=== PATIENT | male | born 1985 | race American Indian/Alaskan Native ===

== ENCOUNTER 2016-12-10 09:26 | Emergency (ER) | payer SELFPAY ==
[2016-12-10 10:08] LABS: Basophils % (Auto) 0.6 % (0.0-1.8); Eosinophils % (Auto) 0.7 % (0.0-4.3); Hematocrit 41.1 % (35.5-45.6); Hemoglobin 13.4 gm/dl (11.8-15.2); Mean Corpuscular HGB Conc 33 % (32-34); Mean Corpuscular Hemoglobin 30 pg (28-32); Mean Corpuscular Volume 93 fl (84-94); Platelet Count 289 K/mm3 (140-440); Red Blood Count 4.42 M/mm3 (3.65-5.03); Red Cell Distribution Width 13.3 % (13.2-15.2); White Blood Count 11.3 K/mm3 (4.5-11.0)
[2016-12-10 10:38] LABS: Bilirubin,Urine NEG (Negative); Blood,Urine NEG (Negative); Ketones,Urine NEG (Negative); Leukocyte Esterase,Urine NEG (Negative); Mucus,Urine FEW /HPF; Nitrite,Urine NEG (Negative)
[2016-12-10] MEDS ORDERED: NORCO 5/325 PO ONE (10:48)
[2016-12-10] MEDS ORDERED: MOTRIN PO ONE (10:49)
[2016-12-10] MEDS ORDERED: BICILLIN L-A IM ONE (10:49)
[2016-12-10 11:00] LABS: Anion Gap 16 mmol/L; BUN/Creatinine Ratio 31.66; Blood Urea Nitrogen 19 mg/dL (9-20); Carbon Dioxide 26 mmol/L (22-30); Chloride 101.5 mmol/L (98-107); Glucose 104 mg/dL (75-100); Potassium 4.6 mmol/L (3.6-5.0); Sodium 139 mmol/L (137-145)
[2016-12-10 12:44] VITALS: BP 153/93
--- NOTE | 2016-12-10 12:53 | Emergency Department Report ---
Entered by SACHA BERKOWITZ, acting as scribe for MIMI DYE NP. ED Fever HPI - General Chief Complaint: Sore Throat Stated Complaint: FEVER 103.5 Time Seen by Provider: 12/10/16 10:44 Source: patient Exam Limitations: no limitations - History of Present Illness Initial Comments: Pt is a 31 y.o. male who presents to [facility] for evaluation of two day hx of persistent fever (Tmax of 103 F) with associated constant sore throat that is aggravated with swallowing, diaphoresis, generalized myalgias, and generalized weakness. He notes that he last took medication at 2300 last night, at which time he took ibuprofen and Afrin. He does not report cough. Patient reports positive ill contact with daughter. Timing/Duration: constant Fever Severity/Quality: greater than 102 F Fever Therapy SET UP [employer]ACH[employer]ES: Ibuprofen, other (Afrin) Associated Symptoms: diaphoresis, muscle aches, sore throat, weakness. denies: cough Timing/Duration: other (2 days ago ) Fever Severity/Quality: greater than 102 F Associated Symptoms: diaphoresis, muscle aches, sore throat, weakness. denies: cough, nausea/vomiting, rash ED Review of Systems ROS: Comment: All other systems reviewed and negative Constitutional: fever, weakness ENT: throat pain Respiratory: denies: cough Gastrointestinal: denies: abdominal pain, nausea, vomiting Musculoskeletal: myalgia ED Past Medical Hx - Past Medical History Previous Medical History?: No - Surgical History Past Surgical History?: Yes Additional Surgical History: right testicular surgery - Social History Smoking Status: Current Every Day Smoker Substance Use Type: Alcohol, Marijuana, Non Opiate Pain - Medications Home Medications: Home Medications Medication Instructions Recorded Confirmed Last Taken Type Ibuprofen [Motrin] 600 mg PO Q8H PRN #15 tablet 12/10/16 Unknown Rx ED Physical Exam - General Limitations: No Limitations General appearance: alert, in no apparent distress - Head Head exam: Present: atraumatic, normocephalic, normal inspection - Eye Eye exam: Present: normal appearance, PERRL, EOMI. Absent: conjunctival injection - ENT ENT exam: Present: mucous membranes moist, TM's normal bilaterally, normal external ear exam - Expanded ENT Exam Expanded Mouth exam: Present: normal external inspection. Absent: drooling, trismus Throat exam: Positive: tonsillar erythema, tonsillomegaly, tonsillar exudate. Negative: R peritonsillar mass, L peritonsillar mass - Neck Neck exam: Present: normal inspection, tenderness, full ROM, lymphadenopathy ( lymph nodes tender). Absent: meningismus - Respiratory Respiratory exam: Present: normal lung sounds bilaterally. Absent: respiratory distress - Cardiovascular Cardiovascular Exam: Present: normal rhythm, tachycardia. Absent: systolic murmur, diastolic murmur, rubs, gallop - GI/Abdominal GI/Abdominal exam: Present: soft, normal bowel sounds. Absent: tenderness - Rectal Rectal exam: Present: deferred - Extremities Exam Extremities exam: Present: normal inspection, full ROM - Back Exam Back exam: Present: normal inspection - Neurological Exam Neurological exam: Present: alert, oriented X3, normal gait - Psychiatric Psychiatric exam: Present: normal affect, normal mood - Skin Skin exam: Present: warm, intact, normal color, diaphoretic. Absent: rash ED Course Vital Signs 12/10/16 12/10/16 12/10/16 09:29 11:11 12:43 Temperature 102.7 F H 101.9 F H 98.7 F Pulse Rate 93 H 66 Respiratory 20 18 Rate Blood Pressure 140/91 Blood Pressure 153/93 [Right] O2 Sat by Pulse 99 99 Oximetry - Reevaluation(s) Reevaluation #1: 12/10/16 12:46 PT states he is feeling better. Afebrile after Motrin and [place]. PT aware of dx and plan of care. PT has no questions at this time. - Pulse Oximetry Interpretation Digit-Finger Initial Pulse Oximetry Readin Actions Taken: none ED Medical Decision Making - Lab Data Result diagrams: 12/10/16 09:53 12/10/16 09:53 Labs 12/10/16 12/10/16 12/10/16 09:53 09:53 10:09 WBC 11.3 H RBC 4.42 Hgb 13.4 Hct 41.1 MCV 93 MCH 30 MCHC 33 RDW 13.3 Plt Count 289 Lymph % (Auto) 23.8 Garza % (Auto) 6.8 Eos % (Auto) 0.7 Baso % (Auto) 0.6 Lymph # 2.7 Garza # 0.8 Eos # 0.1 Baso # 0.1 Seg Neutrophils % 68.1 Seg Neutrophils # 7.7 Sodium 139 Potassium 4.6 Chloride 101.5 Carbon Dioxide 26 Anion Gap 16 BUN 19 Creatinine 0.6 L Estimated GFR > 60 BUN/Creatinine Ratio 31.66 Glucose 104 H Calcium 9.0 Urine Color Yellow Urine Turbidity Clear Urine pH 6.0 Ur Specific Clint 1.026 Urine Protein 30 mg/dl Urine Glucose (UA) Neg Urine Ketones Neg Urine Blood Neg Urine Nitrite Neg Urine Bilirubin Neg Urine Urobilinogen 2.0 Ur Leukocyte Esterase Neg Urine WBC (Auto) 1.0 Urine RBC (Auto) 2.0 U Epithel Cells (Auto) < 1.0 Urine Mucus Few - Differential Diagnosis strep pharyngitis, uri Critical Care Time: No ED Disposition Clinical Impression: Strep pharyngitis Fever Qualifiers: Fever type: unspecified Qualified Code(s): R50.9 - Fever, unspecified Disposition: TO HOME OR SELFCARE Is pt being admited?: No Does the pt Need Aspirin: No Condition: Stable Instructions: Strep Throat (ED), Fever in Adults (ED) Additional Instructions: Rest Increase Fluids Follow up with PCP in the next 3-5 days Have your bp rechecked on follow up Return to the ED if worsening or concerns. Prescriptions: Ibuprofen [Motrin] 600 mg PO Q8H PRN #15 tablet PRN Reason: Pain Referrals: PRIMARY CARE,MD [Primary Care Provider] - 3-5 Days ANASTASIIA ADEN MD [Staff Physician] - 3-5 Days [facility] [Outside] - 3-5 Days [facility] [Outside] - 3-5 Days Time of Disposition: 12:49 This documentation as recorded by the SHO fiore KELLY,accurately reflects the service I personally performed and the decisions made by ,MIMI DYE , TARSHA.
== END 2016-12-10 12:55 | disposition home or self-care (01) ==
LOC: ED 09:26
DX: J02.0 Streptococcal pharyngitis (principal); F17.210 Nicotine dependence, cigarettes, uncomplicated; F12.10 Cannabis abuse, uncomplicated; Z98.890 Other specified postprocedural states
CPT/HCPCS: 36415; 80048; 81001; 85025; 87430; 96372; 99283; J0561

== ENCOUNTER 2017-06-15 09:10 | Emergency (ER) | payer OTHER ==
[2017-06-15 10:27] LABS: BUN/Creatinine Ratio 25; Blood Urea Nitrogen 20 mg/dL (9-20); Calcium 9.3 mg/dL (8.4-10.2); Hemolysis Index 11
--- NOTE | 2017-06-15 10:31 | XRay Report ---
ROUTINE CHEST, TWO VIEWS: HISTORY: Shortness of breath. The trachea, heart, mediastinal contour, lung lemus and bony thorax are unremarkable. IMPRESSION: Unremarkable chest x-ray.
[2017-06-15 10:43] LABS: Basophils % (Auto) 0.7 % (0.0-1.8); Eosinophils # (Auto) 0.3 K/mm3 (0.0-0.4); Eosinophils % (Auto) 4.5 % (0.0-4.3); Hematocrit 41.3 % (35.5-45.6); Lymphocytes # (Auto) 2.5 K/mm3 (1.2-5.4); Lymphocytes % (Auto) 36.7 % (13.4-35.0); Mean Corpuscular HGB Conc 32 % (32-34); Mean Corpuscular Volume 78 fl (84-94); Monocytes # (Auto) 0.5 K/mm3 (0.0-0.8); Monocytes % (Auto) 7.8 % (0.0-7.3); Platelet Count 240 K/mm3 (140-440); Red Blood Count 5.28 M/mm3 (3.65-5.03); Red Cell Distribution Width 14.6 % (13.2-15.2)
[2017-06-15 11:14] LABS: Mean Corpuscular Hemoglobin 25 pg (28-32)
[2017-06-15 17:13] VITALS: BP 126/85
== END 2017-06-15 22:00 | disposition left against medical advice (07) ==
LOC: ED 09:10
DX: R07.9 Chest pain, unspecified (principal); Z53.21 Procedure and treatment not carried out due to patient leaving prior to being seen by health care provider
CPT/HCPCS: 36415; 71020; 80048; 85025; 93005; 93010

== ENCOUNTER 2020-01-20 14:07 | Emergency (ER) | payer SELFPAY ==
--- NOTE | 2020-01-20 15:03 | XRay Report ---
CHEST 2 VIEWS INDICATION: sob,cough and rales. COMPARISON: None FINDINGS: Support devices: None. Heart: Within normal limits. Lungs: No acute air space or interstitial disease. Pleura: No significant pleural effusion. No pneumothorax. Additional findings: None. IMPRESSION: 1. No acute findings. Signer Name: Jose Rafael Tapia MD Signed: 01/20/2020 2:58 PM Workstation Name: [id number]
[2020-01-20 15:41] LABS: Basophils # (Auto) 0.1 K/mm3 (0.0-0.1); Basophils % (Auto) 1.8 % (0.0-1.8); Eosinophils % (Auto) 0.5 % (0.0-4.3); Hematocrit 43.6 % (35.5-45.6); Hemoglobin 14.1 gm/dl (11.8-15.2); Lymphocytes # (Auto) 2.1 K/mm3 (1.2-5.4); Lymphocytes % (Auto) 36.1 % (13.4-35.0); Mean Corpuscular HGB Conc 32 % (32-34); Mean Corpuscular Volume 80 fl (84-94); Monocytes # (Auto) 0.4 K/mm3 (0.0-0.8); Monocytes % (Auto) 7.8 % (0.0-7.3); Platelet Count 224 K/mm3 (140-440); Red Blood Count 5.42 M/mm3 (3.65-5.03); Red Cell Distribution Width 14.6 % (13.2-15.2)
[2020-01-20 16:03] LABS: Alanine Aminotransferase 31 units/L (7-56); Albumin 4.1 g/dL (3.9-5); BUN/Creatinine Ratio 14; Blood Urea Nitrogen 14 mg/dL (9-20); Calcium 9.1 mg/dL (8.4-10.2); Hemolysis Index 7
--- NOTE | 2020-01-20 16:16 | Emergency Department Report ---
- General Chief Complaint: Upper Respiratory Infection Stated Complaint: BODYACHES/THROAT PAIN/FEVER/ Time Seen by Provider: 01/20/20 16:10 Source: patient Mode of arrival: Ambulatory Limitations: No Limitations - History of Present Illness Initial Comments: Patient is a 34-year-old male presents emergency room with complaints of URI symptoms that began 3 days ago. He states this morning he began to run a fever of 101.3. He states he did not take anything for a fever. He has associated cough, nasal congestion, generalized body aches. He states he had vomiting and diarrhea yesterday but that has improved. He is able to tolerate p.o. intake. He denies any shortness of breath, abdominal pain, chest pain. He denies any recent travel. 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 No past medical history. No allergies to medications. - Related Data Previous Rx's Medication Instructions Recorded Last Taken Type Ibuprofen [Motrin] 600 mg PO Q8H PRN #15 tablet 12/10/16 Unknown Rx Albuterol Sulfate [Proventil Hfa] 6.7 gm IH TID PRN #1 hfa.aer.ad 01/20/20 Unknown Rx Azithromycin [Zithromax TAB] 250 mg PO QDAY 5 Days #6 tablet 01/20/20 Unknown Rx Promethazine [Phenergan] 25 mg PO Q8HR PRN #10 tab 01/20/20 Unknown Rx Allergies Allergy/AdvReac Type Severity Reaction Status Date / Time No Known Allergies Allergy Unverified 03/15/16 10:53 ED Review of Systems ROS: Stated complaint: BODYACHES/THROAT PAIN/FEVER/ Other details as noted in HPI Comment: All other systems reviewed and negative ED Past Medical Hx - Past Medical History Previous Medical History?: No Additional medical history: Ankle pain - Surgical History Past Surgical History?: Yes Additional Surgical History: Right testicular surgery - Social History Smoking Status: Current Some Day Smoker Substance Use Type: Alcohol, Marijuana - Medications Home Medications: Home Medications Medication Instructions Recorded Confirmed Last Taken Type Ibuprofen [Motrin] 600 mg PO Q8H PRN #15 tablet 12/10/16 Unknown Rx Albuterol Sulfate [Proventil Hfa] 6.7 gm IH TID PRN #1 hfa.aer.ad 01/20/20 Unknown Rx Azithromycin [Zithromax TAB] 250 mg PO QDAY 5 Days #6 tablet 01/20/20 Unknown Rx Promethazine [Phenergan] 25 mg PO Q8HR PRN #10 tab 01/20/20 Unknown Rx ED Physical Exam - General Limitations: No Limitations General appearance: alert, in no apparent distress - Head Head exam: Present: atraumatic, normocephalic - Eye Eye exam: Present: normal appearance - ENT ENT exam: Present: normal orophraynx, mucous membranes moist, TM's normal bilaterally, normal external ear exam - Respiratory Respiratory exam: Present: normal lung sounds bilaterally. Absent: respiratory distress, wheezes, rales, rhonchi, stridor, chest wall tenderness, accessory muscle use, decreased breath sounds, prolonged expiratory - Cardiovascular Cardiovascular Exam: Present: regular rate, normal rhythm, normal heart sounds. Absent: systolic murmur, diastolic murmur, rubs, gallop - Neurological Exam Neurological exam: Present: alert, oriented X3 - Psychiatric Psychiatric exam: Present: normal affect, normal mood - Skin Skin exam: Present: warm, dry, intact ED Medical Decision Making - Lab Data Result diagrams: 01/20/20 15:14 01/20/20 15:14 Labs 01/20/20 01/20/20 15:14 15:14 WBC 5.8 RBC 5.42 H Hgb 14.1 Hct 43.6 MCV 80 L MCH 26 L MCHC 32 RDW 14.6 Plt Count 224 Lymph % (Auto) 36.1 H Piatt % (Auto) 7.8 H Eos % (Auto) 0.5 Baso % (Auto) 1.8 Lymph # 2.1 Piatt # 0.4 Eos # 0.0 Baso # 0.1 Seg Neutrophils % 53.8 Seg Neutrophils # 3.1 Sodium 138 Potassium 4.2 Chloride 101.4 Carbon Dioxide 21 L Anion Gap 20 BUN 14 Creatinine 1.0 Estimated GFR > 60 BUN/Creatinine Ratio 14 Glucose 100 Calcium 9.1 Total Bilirubin 0.30 AST 41 H ALT 31 Alkaline Phosphatase 72 Total Protein 7.5 Albumin 4.1 Albumin/Globulin Ratio 1.2 - Radiology Data Radiology results: report reviewed cc: SARI MEJIAS Fluoro Time In Minutes: CHEST 2 VIEWS INDICATION: sob,cough and rales. COMPARISON: None FINDINGS: Support devices: None. Heart: Within normal limits. Lungs: No acute air space or interstitial disease. Pleura: No significant pleural effusion. No pneumothorax. Additional findings: None. IMPRESSION: 1. No acute findings. Signer Name: Jose Rafael Tapia MD Signed: 01/20/2020 2:58 PM Workstation Name: [id number] Transcribed By: KWAN Dictated By: Jose Rafael Tapia MD Electronically Authenticated By: Jose Rafael Tapia MD Signed Date/Time: 01/20/201457 DD/ 56 TD/TT: - Medical Decision Making Patient is a 34-year-old male presents emergency room with complaints of URI symptoms that began 3 days ago. He states this morning he began to run a fever of 101.3. He states he did not take anything for a fever. He has associated cough, nasal congestion, generalized body aches. He states he had vomiting and diarrhea yesterday but that has improved. He is able to tolerate p.o. intake. He denies any shortness of breath, abdominal pain, chest pain. He denies any recent travel. 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 No past medical history. No allergies to medications. Vitals are stable. Repeat vitals in triage remained stable. Patient is afebrile, no hypoxia, no tachycardia. Labs and chest x-ray ordered prior to my examination. Labs are normal. Chest x-ray with no acute process. Patient is presenting with viral symptoms during a COVID-19 pandemic surge, patient also does work at a hospital, discussed potential for COVID-19 with patient, discussed strict return precautions, discussed self quarantine. Patient given prescription for Phenergan, azithromycin, albuterol inhaler. Patient does not meet hospital criteria for admission or for COVID-19 testing. Discussed with patient to receive outpatient COVID-19 testing and patient was given a handout. Advised patient Please take medication as prescribed. Please increase your fluid intake over the next several days. May take Tylenol as needed for fever or body aches. May take [id number] cold symptom relief medication such as Mucinex or TheraFlu. Follow-up with a primary care doctor for reexamination. Return to emergency room immediately for any new or worsening symptoms including but not limited to difficulty breathing, shortness of breath, severe chest pain, unable to tolerate by mouth intake, etc. Please self quarantine for 2 weeks from the onset of your symptoms. Please do not go out in public. If you are around others at home please wear a mask. If you need to cough or sneeze please do so in a napkin and immediately throw it away and immediately wash your hands. Wash your hands frequently. Wipe everything down. Recommend for you to get COVID-1 9 testing, may have this done at primary care doctor, health department, [facility] thru testing centers. Critical care attestation.: If time is entered above; I have spent that time in minutes in the direct care of this critically ill patient, excluding procedure time. ED Disposition Clinical Impression: Upper respiratory infection Qualifiers: URI type: unspecified URI Qualified Code(s): J06.9 - Acute upper respiratory infection, unspecified Disposition: - TO HOME OR SELFCARE Is pt being admited?: No Does the pt Need Aspirin: No Condition: Stable Instructions: COVID-19, Upper Respiratory Infection (ED) Additional Instructions: Please take medication as prescribed. Please increase your fluid intake over the next several days. May take Tylenol as needed for fever or body aches. May take [id number] cold symptom relief medication such as Mucinex or TheraFlu. Follow-up with a primary care doctor for reexamination. Return to emergency room immediately for any new or worsening symptoms including but not limited to difficulty breathing, shortness of breath, severe chest pain, unable to tolerate by mouth intake, etc. Please self quarantine for 2 weeks from the onset of your symptoms. Please do not go out in public. If you are around others at home please wear a mask. If you need to cough or sneeze please do so in a napkin and immediately throw it away and immediately wash your hands. Wash your hands frequently. Wipe everything down. Recommend for you to get COVID- 19 testing, may have this done at primary care doctor, health department, [facility] thru testing centers. Prescriptions: Promethazine [Phenergan] 25 mg PO Q8HR PRN #10 tab PRN Reason: Nausea And Vomiting Albuterol Sulfate [Proventil Hfa] 6.7 gm IH TID PRN #1 hfa.aer.ad PRN Reason: Shortness Of Breath Azithromycin [Zithromax TAB] 250 mg PO QDAY 5 Days #6 tablet Referrals: THANG DAILEY MD [Staff Physician] - 2-3 Days [facility] [Provider Group] - 2-3 Days [facility] [Outside] - 2-3 Days Forms: Work/School Release Form(ED) Time of Disposition: 16:16 Print Language: MOZAMBICAN
[2020-01-20 16:22] VITALS: BP 157/106
== END 2020-01-20 16:20 | disposition home or self-care (01) ==
LOC: ED 14:07
DX: J06.9 Acute upper respiratory infection, unspecified (principal); F17.200 Nicotine dependence, unspecified, uncomplicated; F12.10 Cannabis abuse, uncomplicated; Z98.890 Other specified postprocedural states; Z79.1 Long term (current) use of non-steroidal anti-inflammatories (NSAID); Z79.2 Long term (current) use of antibiotics; Z79.899 Other long term (current) drug therapy
CPT/HCPCS: 36415; 71046; 80053; 85025

== ENCOUNTER 2020-11-27 19:39 | Emergency (ER) | payer SELFPAY ==
[2020-11-27 22:22] LABS: Alanine Aminotransferase 29 units/L (7-56); Albumin 4.6 g/dL (3.9-5); BUN/Creatinine Ratio 18; Blood Urea Nitrogen 14 mg/dL (9-20); Calcium 9.5 mg/dL (8.4-10.2); Hemolysis Index 6
[2020-11-27 22:33] LABS: Bilirubin,Urine NEG (Negative); Blood,Urine SM (Negative); Color,Urine Yellow (Yellow); Mucus,Urine FEW /HPF; RBC,Urine < 1.0 /HPF (0.0-6.0); Urobilinogen,Urine < 2.0 mg/dL (<2.0)
[2020-11-27 22:44] LABS: Basophils # (Auto) 0.1 K/mm3 (0.0-0.1); Basophils % (Auto) 0.6 % (0.0-1.8); Eosinophils % (Auto) 0.1 % (0.0-4.3); Hemoglobin 13.9 gm/dl (11.8-15.2); Lymphocytes # (Auto) 1.5 K/mm3 (1.2-5.4); Lymphocytes % (Auto) 13.1 % (13.4-35.0); Mean Corpuscular HGB Conc 32 % (32-34); Mean Corpuscular Volume 83 fl (84-94); Monocytes # (Auto) 0.5 K/mm3 (0.0-0.8); Monocytes % (Auto) 4.5 % (0.0-7.3); Platelet Count 290 K/mm3 (140-440); Red Blood Count 5.21 M/mm3 (3.65-5.03); Red Cell Distribution Width 14.7 % (13.2-15.2)
[2020-11-27] MEDS ORDERED: FAMOTIDINE 20 MG/2 ML INJ IV ONE (23:41)
[2020-11-27] MEDS ORDERED: ONDANSETRON 4 MG/2 ML INJ IV ONE (23:41)
[2020-11-27] MEDS ORDERED: SODIUM CHLORIDE 0.9% 1000 ML 1,000 ML IV ONE (23:41)
[2020-11-27] MEDS ORDERED: MORPHINE 4 MG/1 ML INJ IV ONE (23:41)
--- NOTE | 2020-11-27 23:44 | Emergency Department Report ---
ED General Adult HPI - General Chief complaint: Abdominal Pain Stated complaint: LEFT SIDE PAIN Time Seen by Provider: 11/27/20 23:32 Source: patient Mode of arrival: Ambulatory Limitations: No Limitations - History of Present Illness Initial comments: 35-year-old male patient presents to the emergency department with complaints of epigastric and left upper quadrant abdominal pain with associated nausea and vomiting starting approximately 6 hours ago. Patient attempted to take an [id number] vitamin but was unable to keep the medication down. No known sick contacts. No current steroid or antibiotic use. No known history of hepatobiliary disease. Patient does endorse alcohol use approximately 24 hours ago. Denies fever, chills, chest pain, shortness of breath, hematemesis, rectal bleeding, constipation, urinary symptoms. Denies all other complaints at this time. - Related Data Previous Rx's Medication Instructions Recorded Last Taken Type Ibuprofen [Motrin] 600 mg PO Q8H PRN #15 tablet 12/10/16 Unknown Rx Albuterol Sulfate [Proventil Hfa] 6.7 gm IH TID PRN #1 hfa.aer.ad 01/20/20 Unknown Rx Azithromycin [Zithromax TAB] 250 mg PO QDAY 5 Days #6 tablet 01/20/20 Unknown Rx Promethazine [Phenergan] 25 mg PO Q8HR PRN #10 tab 01/20/20 Unknown Rx Promethazine [Phenergan] 25 mg PO Q6HR PRN #15 tab 11/28/20 Unknown Rx oxyCODONE /ACETAMINOPHEN [Percocet 1 tab PO Q4HR #10 tab 11/28/20 Unknown Rx 5/325] Allergies Allergy/AdvReac Type Severity Reaction Status Date / Time No Known Allergies Allergy Unverified 03/15/16 10:53 ED Review of Systems ROS: Stated complaint: LEFT SIDE PAIN Other details as noted in HPI Other: GENERAL: Negative for fever, chills, weight change, anorexia, fatigue. ENT: Negative for ear pain, difficulty hearing, sore throat, nasal congestion, epistaxis. CARDIOVASCULAR: Negative for chest pain, palpitations, lower extremity swelling. PULMONARY: Negative for cough, dyspnea, wheezing, orthopnea, cyanosis. GASTROINTESTINAL: Positive for abdominal pain, nausea, vomiting. MUSCULOSKELETAL: Negative for joint pain, joint swelling, myalgias, back pain, neck pain. NEUROLOGICAL: Negative for headache, seizure, syncope, paresthesias, weakness. INTEGUMENTARY: Negative for erythema, rash, diaphoresis, laceration, ecchymosis. HEMATOLOGICAL: Negative for hemoptysis, hematemesis, hematochezia, hematuria. PSYCHIATRIC: Negative for hallucinations, suicidal ideation, homicidal ideation, anxiety, depression. ED Past Medical Hx - Past Medical History Previous Medical History?: Yes Additional medical history: Ankle pain - Surgical History Past Surgical History?: Yes Additional Surgical History: Right testicular surgery - Social History Smoking Status: Current Every Day Smoker Substance Use Type: Marijuana - Medications Home Medications: Home Medications Medication Instructions Recorded Confirmed Last Taken Type Ibuprofen [Motrin] 600 mg PO Q8H PRN #15 tablet 12/10/16 Unknown Rx Albuterol Sulfate [Proventil Hfa] 6.7 gm IH TID PRN #1 hfa.aer.ad 01/20/20 Unk nown Rx Azithromycin [Zithromax TAB] 250 mg PO QDAY 5 Days #6 tablet 01/20/20 Unknown Rx Promethazine [Phenergan] 25 mg PO Q8HR PRN #10 tab 01/20/20 Unknown Rx Promethazine [Phenergan] 25 mg PO Q6HR PRN #15 tab 11/28/20 Unknown Rx oxyCODONE /ACETAMINOPHEN [Percocet 1 tab PO Q4HR #10 tab 11/28/20 Unknown Rx 5/325] ED Physical Exam - General Limitations: No Limitations - Other Other exam information: General: Awake and alert. Appears uncomfortable. Head: Atraumatic, normocephalic. Eyes: EOMI. Pupils are equal and round. Normal sclera and conjunctiva. ENT: Oral mucosa is moist. Normal pharyngeal exam. Neck: Supple. No lymphadenopathy. Pulmonary: No respiratory distress. Clear to auscultation bilaterally. Cardiac: Regular rate and rhythm. Pulses are palpable and equal bilaterally. No lower extremity cyanosis or edema. Skin: Warm and dry. No rashes. Abdomen: Soft, non-protuberant. Epigastric and left upper quadrant tenderness without guarding, rigidity, or rebound. Bowel sounds are normal. No organomegaly or masses noted. McBurney's point is nontender. Garcia sign is negative. No flank ecchymosis. No periumbilical ecchymosis. Back: Normal alignment. No CVA tenderness. Extremities: Symmetrical. Full range of motion intact. Neurological: Alert and oriented, appropriately interactive, no focal deficits. Psych: Cooperative. Appropriate mood and affect. Speech is evenly metered. Thoughts are logically construed. ED Course Vital Signs 11/27/20 11/28/20 11/28/20 21:46 00:00 00:30 Temperature 97.7 F Pulse Rate 58 L Respiratory 18 16 16 Rate Blood Pressure 186/102 Blood Pressure [Left] O2 Sat by Pulse 100 Oximetry 11/28/20 11/28/20 11/28/20 01:21 01:51 02:05 Temperature Pulse Rate Respiratory 16 16 16 Rate Blood Pressure Blood Pressure [Left] O2 Sat by Pulse Oximetry 11/28/20 11/28/20 02:10 02:22 Temperature 98.2 F Pulse Rate 58 L Respiratory 16 16 Rate Blood Pressure Blood Pressure 178/94 [Left] O2 Sat by Pulse 100 Oximetry ED Medical Decision Making - Lab Data Result diagrams: 11/27/20 21:51 11/27/20 21:51 - Medical Decision Making Differential diagnosis including but not limited to: pancreatitis, cholecystitis, peptic ulcer disease, bowel obstruction, bowel perforation, dehydration, electrolyte abnormality, hypoglycemia, viral infection On re-evaluation, patient is stable and symptoms have improved. Repeat abdominal exam is benign. He is tolerating oral liquids without difficulty. No further vomiting in the emergency department. His pain is controlled. Other than minimally elevated lipase and mild leukcytosis (suspect stress-induced demargination in the absence of fever/tachycardia/peritoneal signs) his labs are unremarkable. History and exam findings consistent with acute uncomplicated pancreatitis, likely attributable to recent alcohol intake. Risk of mortality is less than 1% per BISAP score clinical guidelines and therefore further diagnsotic work-up (such as CT imaging) and/or hospital admission is not indicated at this time, but may be reconsidered if symptoms evolve or worsen. Patient will be discharged home with short course of opiate analgesics, antiemetics, and referral to primary care provider for close outpatient follow- up. Emphasized the importance of abstaining from alcohol use. Emphasized the importance of maintaining adequate oral hydration and gradually advancing diet slowly as tolerated. Patient expressed understanding and is agreeable to plan of care. Strict return precautions provided. Repeat exam is unremarkable and benign. History, exam, diagnostic testing, and current condition do not suggest worrisome pathology to warrant further testing, continued ED treatment, admission, or surgical evaluation at this point. Given the low probability of a significant medical illness, it would be more likely to result in harm than benefit to perform further testing at this stage. Discussed findings, presumptive diagnosis, need for follow-up and specific signs/symptoms that should prompt immediate return to the emergency department. Instructions were explained in detail to the patient in addition to giving written discharge information. Patient expressed understanding and was given the opportunity to ask questions, all of which were satisfactorily answered prior to discharge home. Critical care attestation.: If time is entered above; I have spent that time in minutes in the direct care of this critically ill patient, excluding procedure time. ED Disposition Clinical Impression: Acute pancreatitis Qualifiers: Pancreatitis type: unspecified pancreatitis type Acute pancreatitis complication: unspecified Qualified Code(s): K85.90 - Acute pancreatitis without necrosis or infection, unspecified Disposition: TO HOME OR SELFCARE Is pt being admited?: No Does the pt Need Aspirin: No Condition: Stable Instructions: Acute Pancreatitis, [id number] Additional Instructions: Take Percocet as directed for pain. Take Phenergan as directed for nausea/vomiting. Do not drive while taking these medications. Do not operate machinery while taking these medications. Bowel rest and hydration are extremely important. Clear liquid diet for the next 48 hours. Gradually advance diet slowly as tolerated. Please refrain from alcohol consumption. Follow-up with primary care provider next week. Call Monday to schedule an appointment. See referral information below. Return to the emergency department immediately for new or worsening symptoms. Specifically, return to the emergency department immediately for fever, worsening abdominal pain, increased vomiting, abnormal bleeding/bruising, or any other concerns. Prescriptions: oxyCODONE /ACETAMINOPHEN [Percocet 5/325] 1 tab PO Q4HR #10 tab Promethazine [Phenergan] 25 mg PO Q6HR PRN #15 tab PRN Reason: Nausea Referrals: THANG DAILEY MD [Staff Physician] - 3-5 Days [facility] [Outside] - 3-5 Days [facility] [Outside] - 3-5 Days [facility] [place] [facility] [place] - 3-5 Days [facility] [Provider Group] - 3-5 Days Forms: Work/School Release Form(ED) Time of Disposition: 02:05
[2020-11-28] MEDS ORDERED: MORPHINE 2 MG/1 ML INJ IV ONE ×2 (00:57→01:53)
[2020-11-28 02:12] VITALS: BP 178/94
== END 2020-11-28 02:23 | disposition home or self-care (01) ==
LOC: ED 19:39
DX: K85.90 Acute pancreatitis without necrosis or infection, unspecified (principal); F17.200 Nicotine dependence, unspecified, uncomplicated; F12.10 Cannabis abuse, uncomplicated; Z98.890 Other specified postprocedural states; Z79.899 Other long term (current) drug therapy
CPT/HCPCS: 36415; 80053; 81001; 83690; 85025; 96361; 96374; 96375; 96376; 99283; J2270; J2405; J7030